=== PATIENT | male | born 1955 | race Caucasian/White ===

== ENCOUNTER 2017-12-08 11:00 | Emergency (ER) | payer OTHER ==
[2017-12-08 11:14] VITALS: BP 141/86; PULSE 73; TEMP 98.3; BMI 42.7
[2017-12-08] MEDS ORDERED: ACETAMINOPHEN 500 MG TABLET (FP) PO ONE (11:35)
[2017-12-08] MEDS ORDERED: ACETAMINOPHEN 500 MG TABLET (FP) ONE (11:37)
--- NOTE | 2017-12-08 12:16 | PDOC ---
History of Present Illness - General Chief Complaint: Back Pain Stated Complaint: BACK PAIN Time Seen by Provider: 12/08/17 11:23 - History of Present Illness Initial Comments: 12/08/17 12:08 62-year-old male presents for evaluation of back pain 6 days. He has a past medical history significant for BPH he takes Cialis. History of gastric bypass. He states he was lifting a file cabinet work felt some pain in his back and progressively over the last 6 days his pain has gotten worse. He describes this pain as sharp radiating around into his chest from his mid back exacerbated with motion minimally relieved with rest with the above-mentioned radiation. He also reports a fever of 100.4 last night. Past History - Past Medical History Allergies/Adverse Reactions: Allergies Allergy/AdvReac Type Severity Reaction Status Date / Time No Known Allergies Allergy Verified 12/08/17 11:24 Home Medications: Ambulatory Orders Acyclovir [Zovirax -] 800 mg PO 5XD #35 tablet 12/08/17 COPD: No CHF: No Other medical history: BPH, C-PAP AT NIGHT - Surgical History Abdominal Surgery: Yes - Immunization History Immunization Up to Date: No - Suicide/Smoking/Psychosocial Hx Smoking History: Never smoked Have you smoked in the past 12 months: No Information on smoking cessation initiated: No Hx Alcohol Use: No Drug/Substance Use Hx: No Review of Systems - Review of Systems Constitutional: Yes: Fever Cardiac (ROS): Yes: Chest Pain Musculoskeletal: Yes: Back Pain *Physical Exam - Vital Signs Last Vital Signs Temp Pulse Resp BP Pulse Ox 98.3 F 73 16 141/86 99 12/08/17 11:09 12/08/17 11:09 12/08/17 11:09 12/08/17 11:09 12/08/17 11:09 - Physical Exam Comments: HEAD: NC/AT EYES: Conjuntiva clear Ears: Canals and TM's normal NOSE: No d/c THROAT: Moist mucous membrances, oral pharanx clear, uvula midline NECK: Supple without adenopathy CARDIAC: S1 S2 LUNGS: CTA Full and Equal breath sounds ABDOMEN: Soft NT ND MS: Full ROM in all joints without edema NEUROLOGIC: No gross sensory or motor deficits, NVID SKIN: Normal color and temperature there is a closed vesicular rash starting at the midline of the thoracic spine wrapping around to the anterior aspect of the chest in the area of T5 and 6 Thoracic spine exam reveals tenderness about the area of the latissimus dorsi and left side of the ribs. There are no gross sensorimotor deficits in bilateral upper or lower extremities 12/08/17 12:10 ED Treatment Course - RADIOLOGY Radiology Studies Ordered: Category Date Time Status CHEST PA & LAT [RAD] Stat Radiology 12/08/17 11:35 Taken RIBS-LEFT SIDE [RAD] Stat Radiology 12/08/17 11:46 Ordered - Medications Given in the ED: ED Medications Discontinued Medications Generic Name Dose Route Start Last Admin Trade Name Shona PRN Reason Stop Dose Admin Acetaminophen 1,000 mg 12/08/17 11:35 12/08/17 11:39 Tylenol - PO 12/08/17 11:36 1,000 mg ONCE ONE Administration Medical Decision Making - Medical Decision Making Shingles and muscle strain I will treat him with Flexeril and acyclovir Tylenol for pain have him follow-up with his primary care physician 12/08/17 12:16 *DC/Admit/Observation/Transfer Diagnosis at time of Disposition: Shingles outbreak, Strain of muscle at thorax level - Discharge Dispostion Disposition: HOME Condition at time of disposition: Stable Decision to Admit order: No - Referrals Referrals: Ivan Dietrich MD [Primary Care Provider] - - Patient Instructions Printed Discharge Instructions: Muscle Strain, Shingles, DI for Shingles Additional Instructions: Please take the antiviral medication as directed and follow-up with her primary care physician in 2-3 days for further evaluation and treatment options. He may only take Tylenol for pain because of your history of gastric bypass. I've also given you a muscle relaxer which should help with your pain it's one tablet at nighttime he will make you sleepy. Return to the emergency room should symptoms worsen or go unresolved. Tylenol as directed for pain and fever. - Post Discharge Activity
== END 2017-12-08 12:32 | disposition home or self-care (01) ==
LOC: JERFT 11:00
DX: S29.012A Strain of muscle and tendon of back wall of thorax, initial encounter (principal); B02.9 Zoster without complications
CPT/HCPCS: 71046-TC-FY; 71101-TC-FY; 99281-25